=== PATIENT | female | born 1985 | race Caucasian/White ===

== ENCOUNTER 2016-10-16 05:13 | Emergency (ER) | payer MEDICAID ==
[~2016-10-16] VITALS: Ht 162.6 cm; Wt 90.7 kg
[2016-10-16 05:20] VITALS: BP_SYST 162
[2016-10-16] MEDS ORDERED: KETOROLAC TROMETHAMINE 60 MG/2 ML VIAL IM ONE (06:15)
[2016-10-16 06:39] VITALS: BP_SYST 148
== END 2016-10-16 06:38 | disposition home or self-care (01) ==
LOC: SED 05:13
DX: K08.89 Other specified disorders of teeth and supporting structures (principal)
CPT/HCPCS: 96372; 99283; J1885

== ENCOUNTER 2019-08-06 20:02 | Emergency (ER) | payer MEDICAID ==
[~2019-08-06] VITALS: Ht 160 cm; Wt 73.5 kg
[2019-08-06 20:13] VITALS: BP_SYST 165
--- NOTE | 2019-08-06 20:15 | NUR ---
ER PA Denilson Camilo in triage examining patient.
--- NOTE | 2019-08-06 20:16 | NUR ---
Pt brought by self , A&Ox4, pt presents to ER with cough/ congestion x 3 days, skin pink and warm, cap refill <3, afebrile,ambulatory, will cont to monitor.
--- NOTE | 2019-08-06 20:16 | NUR ---
Denilson GARNER evaluating patient at triage room
[2019-08-06 20:30] VITALS: BP_SYST 153
--- NOTE | 2019-08-06 20:30 | NUR ---
Patient given written and verbal discharge instructions and verbalizes understanding. ER MD discussed with patient the results and treatment provided. Patient in stable condition. ID arm band removed. Rx of Flonase, Promethazine, Cepacol Sore throat given. Patient educated on pain management and to follow up with PMD. Pain Scale 0. Opportunity for questions provided and answered. Medication side effect fact sheet provided.
== END 2019-08-06 20:30 | disposition home or self-care (01) ==
LOC: SED 20:02
DX: J06.9 Acute upper respiratory infection, unspecified (principal)
CPT/HCPCS: 99283

== ENCOUNTER 2019-09-11 17:49 | Emergency (ER) | payer MEDICAID ==
[~2019-09-11] VITALS: Ht 162.6 cm; Wt 90.7 kg
[2019-09-11 18:05] VITALS: BP_SYST 148
--- NOTE | 2019-09-11 18:50 | NUR ---
Patient to ER CH 1 chair to gown for evaluation. Side rails up.
--- NOTE | 2019-09-11 18:52 | NUR ---
ER NADINE Carroll at bedside examining patient.
--- NOTE | 2019-09-11 18:58 | NUR ---
Patient AAO x 4 ambulates to [facility] with complaints of cough, congestion, and 1/10 L ear discomfort since waking up with morning. Denies taking any medication at home for her symptoms. Even chest rise and fall with respirations. Will continue to monitor.
[2019-09-11 19:10] VITALS: BP_SYST 136
--- NOTE | 2019-09-11 19:10 | NUR ---
Patient given written and verbal discharge instructions and verbalizes understanding. ER PINKING MACHINE OPERATOR So Carroll discussed with patient the results and treatment provided. Patient in stable condition. ID arm band removed. Rx of Fluticasone Propionate, Zyrtec, and Augmentin given. Patient educated on pain management and to follow up with PMD. Pain Scale 1/10. Opportunity for questions provided and answered. Medication side effect fact sheet provided.
== END 2019-09-11 19:10 | disposition home or self-care (01) ==
LOC: SED 17:49
DX: J06.9 Acute upper respiratory infection, unspecified (principal); H66.92 Otitis media, unspecified, left ear; R03.0 Elevated blood-pressure reading, without diagnosis of hypertension
CPT/HCPCS: 99283

== ENCOUNTER 2019-09-12 23:06 | Emergency (ER) | payer MEDICAID ==
[~2019-09-12] VITALS: Ht 162.6 cm; Wt 90.7 kg
[2019-09-12 23:10] VITALS: BP_SYST 155
[2019-09-13 00:02] VITALS: BP_SYST 149
== END 2019-09-13 00:02 | disposition home or self-care (01) ==
LOC: SED 23:06
DX: J32.9 Chronic sinusitis, unspecified (principal); I10 Essential (primary) hypertension
CPT/HCPCS: 99283

== ENCOUNTER 2022-09-05 14:49 | Emergency (ER) | payer MEDICAID ==
[~2022-09-05] VITALS: Ht 162.6 cm; Wt 81.6 kg
[2022-09-05 15:12] VITALS: BP_SYST 170
[2022-09-05] MEDS ORDERED: IBUP-1969 PO (15:59)
[2022-09-05] MEDS ORDERED: AUG875 PO (15:59)
[2022-09-05] MEDS ORDERED: KETOROLAC TROMETHAMINE 15 MG VIAL IM ONE (16:00)
== END 2022-09-05 17:23 | disposition home or self-care (01) ==
LOC: SED 14:49
DX: K08.89 Other specified disorders of teeth and supporting structures (principal); I10 Essential (primary) hypertension; F17.210 Nicotine dependence, cigarettes, uncomplicated; F15.10 Other stimulant abuse, uncomplicated; Z79.899 Other long term (current) drug therapy
CPT/HCPCS: 99283; 96372; J1885

== ENCOUNTER 2023-07-09 05:02 | Emergency (ER) | payer MEDICAID ==
[~2023-07-09] VITALS: Ht 162.6 cm; Wt 90.7 kg
[~2023-07-09 05:02] MED LIST: AUG875 PO; IBUP-1969 PO
[2023-07-09 05:10] VITALS: BP_SYST 158; PULSE 101; RESP 26; TEMP 97.7; O2SAT 94
[2023-07-09] MEDS ORDERED: ALBUTEROL SULFATE 0.083% 2.5 MG/3 ML VIAL.NEB INH ONE (05:15)
[2023-07-09] MEDS ORDERED: predniSONE 20 MG TABLET PO ONE (05:30)
[2023-07-09] MEDS ORDERED: ALBMDI INH (05:50)
[2023-07-09] MEDS ORDERED: PRED20TA PO (05:50)
[2023-07-09 05:58] VITALS: BP_SYST 158; PULSE 86; RESP 22; TEMP 98.2
[2023-07-09 05:59] VITALS: O2SAT 96
== END 2023-07-09 05:57 | disposition home or self-care (01) ==
LOC: SED 05:02
DX: J45.901 Unspecified asthma with (acute) exacerbation (principal); I10 Essential (primary) hypertension; Z79.899 Other long term (current) drug therapy
CPT/HCPCS: 99283; 94640; J7512

== ENCOUNTER 2023-09-01 20:33 | Emergency (ER) | payer MEDICAID ==
[~2023-09-01] VITALS: Ht 162.6 cm; Wt 90.7 kg
[~2023-09-01 20:33] MED LIST changes: +ALBMDI INH; +PRED20TA PO
[2023-09-01 20:40] VITALS: BP_SYST 172; PULSE 101; RESP 17; TEMP 97.8; O2SAT 94
[2023-09-01] MEDS ORDERED: IPRATROPIUM/ALBUTEROL SULFATE 3 ML AMPUL.NEB (DUONEB) ONE (20:52)
[2023-09-01] MEDS ORDERED: IPRATROPIUM/ALBUTEROL SULFATE 3 ML AMPUL.NEB (DUONEB) INH ONE (21:00)
[2023-09-01] MEDS ORDERED: cloNIDine HCL 0.1 MG TABLET PO ONE (21:00)
[2023-09-01] MEDS ORDERED: NACL 0.9% 1,000 ML IV ONE (21:00)
[2023-09-01] MEDS ORDERED: methylPREDNISolone SOD SUCC/PF 62.5 MG/ML VIAL IVP ONE (21:00)
[2023-09-01] MEDS ORDERED: MAGNESIUM SULFATE 50 ML IV ONE (21:00)
[2023-09-01] MEDS ORDERED: PRED20TA PO (21:23)
[2023-09-01] MEDS ORDERED: ALBMDI INH (21:23)
[2023-09-01 21:24] LABS: INFLUENZA TYPE A Negative (NEGATIVE); INFLUENZA TYPE B NEGATIVE (NEGATIVE)
[2023-09-01 21:28] LABS: COVID19 ANTIGEN SOFIA FIA NEGATIVE (NEGATIVE)
[2023-09-01] MEDS ORDERED: ALBUTEROL SULFATE 0.083% 2.5 MG/3 ML VIAL.NEB INH ONE ×2 (21:30→22:00)
[2023-09-01] MEDS ORDERED: LISI20TA30 PO (21:40)
[2023-09-02 00:11] VITALS: BP_SYST 172; PULSE 101; RESP 17; TEMP 97.8; O2SAT 93
== END 2023-09-02 00:12 | disposition home or self-care (01) ==
LOC: SED 20:33
DX: J45.901 Unspecified asthma with (acute) exacerbation (principal); R06.03 Acute respiratory distress; I10 Essential (primary) hypertension; R06.02 Shortness of breath; Z79.899 Other long term (current) drug therapy; Z20.822 Contact with and (suspected) exposure to COVID-19
CPT/HCPCS: 36415; 71045; 94640; 96365; 96366; 96375; 99285; J2930; J3475

== ENCOUNTER 2023-10-10 18:27 | Emergency (ER) | payer MEDICAID ==
[~2023-10-10] VITALS: Ht 162.6 cm; Wt 90.7 kg
[2023-10-10 18:27] VITALS: BP_SYST 120; PULSE 89; RESP 19; TEMP 97.9; O2SAT 99
[~2023-10-10 18:27] MED LIST changes: +LISI20TA30 PO
[2023-10-10 18:43] VITALS: BP_SYST 154; PULSE 100; RESP 18; TEMP 98.2; O2SAT 95
[2023-10-10] MEDS ORDERED: ALBMDI INH (18:59)
[2023-10-10 19:07] VITALS: BP_SYST 135; PULSE 94; RESP 18; TEMP 97.8; O2SAT 96
== END 2023-10-10 19:06 | disposition home or self-care (01) ==
LOC: SED 18:27
DX: Z76.0 Encounter for issue of repeat prescription (principal); J45.909 Unspecified asthma, uncomplicated; I10 Essential (primary) hypertension; Z79.899 Other long term (current) drug therapy
CPT/HCPCS: 99281

== ENCOUNTER 2023-10-14 04:49 | Emergency (ER) | payer MEDICAID ==
[~2023-10-14] VITALS: Ht 162.6 cm; Wt 90.7 kg
[2023-10-14 04:54] VITALS: BP_SYST 168; PULSE 101; RESP 26; TEMP 97.5; O2SAT 90
[2023-10-14] MEDS ORDERED: predniSONE 20 MG TABLET ONE (04:56)
[2023-10-14] MEDS: predniSONE 20 MG TABLET PO ONE (04:58)
[2023-10-14] MEDS: IPRATROPIUM/ALBUTEROL SULFATE 3 ML AMPUL.NEB (DUONEB) INH ONE (05:06)
[2023-10-14 05:47] VITALS: BP_SYST 133; PULSE 74; RESP 18; TEMP 97.5; O2SAT 95
== END 2023-10-14 05:48 | disposition home or self-care (01) ==
LOC: SED 04:49
DX: J45.901 Unspecified asthma with (acute) exacerbation (principal); R06.02 Shortness of breath; I10 Essential (primary) hypertension; Z79.899 Other long term (current) drug therapy
CPT/HCPCS: 99283; 94640; J7512

== ENCOUNTER 2023-10-22 00:20 | Emergency (ER) | payer MEDICAID ==
[~2023-10-22] VITALS: Ht 162.6 cm; Wt 90.7 kg
[2023-10-22 00:28] VITALS: BP_SYST 164; PULSE 105; RESP 16; TEMP 98.1; O2SAT 95
[2023-10-22] MEDS: predniSONE 20 MG TABLET PO ONE (03:30)
[2023-10-22] MEDS: IPRATROPIUM BROM 0.5 MG/2.5 ML VIAL.NEB (ATROVENT) INH ONE ×2 (03:43→04:17)
[2023-10-22] MEDS: ALBUTEROL SULFATE 0.083% 2.5 MG/3 ML VIAL.NEB INH ONE ×2 (03:43→04:17)
[2023-10-22] MEDS ORDERED: ALBMDI INH (04:01)
[2023-10-22] MEDS ORDERED: PRED20TA PO (04:01)
[2023-10-22 04:28] VITALS: BP_SYST 164; PULSE 105; RESP 16; TEMP 98.1; O2SAT 93
== END 2023-10-22 04:25 | disposition home or self-care (01) ==
LOC: SED 00:20
DX: J45.901 Unspecified asthma with (acute) exacerbation (principal); R06.02 Shortness of breath; I10 Essential (primary) hypertension; Z79.899 Other long term (current) drug therapy
CPT/HCPCS: 99284; 94640; J7512

== ENCOUNTER 2023-12-31 02:12 | Emergency (ER) | payer MEDICAID ==
[~2023-12-31] VITALS: Ht 170.2 cm; Wt 99.8 kg
[2023-12-31 02:15] VITALS: BP_SYST 155; PULSE 102; RESP 20; TEMP 98; O2SAT 92
[2023-12-31] MEDS: ALBUTEROL SULFATE 0.083% 2.5 MG/3 ML VIAL.NEB INH ONE (02:48)
[2023-12-31] MEDS: methylPREDNISolone SOD SUCC/PF 62.5 MG/ML VIAL IVP ONE (03:03)
[2023-12-31] MEDS: ENALAPRILAT DIHYDRATE 1.25 MG/ML VIAL IVP ONE (03:03)
[2023-12-31] MEDS: MAGNESIUM SULFATE 50 ML IV ONE (03:04)
[2023-12-31] MEDS ORDERED: LISI20TA30 PO (04:58)
[2023-12-31 05:03] VITALS: BP_SYST 138; PULSE 86; RESP 20; TEMP 98; O2SAT 92
== END 2023-12-31 05:02 | disposition home or self-care (01) ==
LOC: SED 02:12
DX: J45.901 Unspecified asthma with (acute) exacerbation (principal); F17.200 Nicotine dependence, unspecified, uncomplicated; I10 Essential (primary) hypertension; Z90.49 Acquired absence of other specified parts of digestive tract; Z79.899 Other long term (current) drug therapy; Z79.2 Long term (current) use of antibiotics
CPT/HCPCS: 94640; 96365; 96366; 96375; 99285; J2930; J3475

== ENCOUNTER 2024-01-25 04:05 | Emergency (ER) | payer MEDICAID ==
[~2024-01-25] VITALS: Ht 162.6 cm; Wt 90.7 kg
[2024-01-25 04:44] VITALS: BP_SYST 114; PULSE 101; RESP 18; TEMP 97.9; O2SAT 98
== END 2024-01-25 04:55 | disposition left against medical advice (07) ==
LOC: SED 04:05
DX: R06.02 Shortness of breath (principal); Z53.21 Procedure and treatment not carried out due to patient leaving prior to being seen by health care provider

== ENCOUNTER 2024-03-06 01:53 | Inpatient (IN) | payer MEDICAID ==
[~2024-03-06] VITALS: Ht 162.6 cm; Wt 95.3 kg
[2024-03-06] VITALS (7 sets, daily range): BP systolic 136–151; PULSE 84–111; RESP 16–18; TEMP 96.7–98.1; O2SAT 92–96
--- NOTE | 2024-03-06 02:00 | NUR ---
Patient to ER bed 3 to gown for evaluation. Side rails up. Report given to YRN KWONG.
--- NOTE | 2024-03-06 02:00 | NUR ---
C/O TROUBLE BREATHING, SOB AND COUGH STARTING WHEN SHE WOKE UP THIS MORNING. HAS HX OF ASTHMA AND HTN. RAN OUT OF INHALER. SPEAKING IN COMPLETE SENTENCES. RESPIRATIONS ARE A BIT SHALLOW AND TIGHT. O2 SAT AT 92% ON RA. HR AT 110. DENIES PAIN.
[2024-03-06] MEDS: IPRATROPIUM/ALBUTEROL SULFATE 3 ML AMPUL.NEB (DUONEB) INH ONE ×2 (02:18→03:39)
--- NOTE | 2024-03-06 02:18 | NUR ---
DR VELASCO IS EXAMINING THE PATIENT AT THE BEDSIDE
--- NOTE | 2024-03-06 02:18 | NUR ---
RT AT THE BEDSIDE
--- NOTE | 2024-03-06 02:25 | NUR ---
x ray at the bedside
[2024-03-06] MEDS: predniSONE 20 MG TABLET PO ONE (02:34)
--- NOTE | 2024-03-06 03:00 | NUR ---
PT ASKING FOR PUDDING. ITEM PROVIDED
[2024-03-06] MEDS ORDERED: PRED20TA PO (03:16)
[2024-03-06] MEDS ORDERED: ALBMDI INH (03:16)
[2024-03-06 03:23] LABS: COVID19 ANTIGEN SOFIA FIA NEGATIVE (NEGATIVE)
[2024-03-06 03:39] LABS: INFLUENZA TYPE A Negative (NEGATIVE); INFLUENZA TYPE B NEGATIVE (NEGATIVE)
[2024-03-06 04:16] LABS: BASOPHILS # (AUTO) 0.1 K/uL (0.0-0.2); BASOPHILS % (AUTO) 0.8 % (0.0-2.0); EOSINOPHILS # (AUTO) 0.6 K/uL (0.0-0.4); EOSINOPHILS % (AUTO) 6.6 % (0.0-4.0); HEMATOCRIT 36.8 % (36-48); HEMOGLOBIN 11.8 g/dL (12.0-16.0); LYMPHOCYTES # (AUTO) 2.1 K/uL (1.0-5.5); MEAN CORPUSCULAR HEMOGLOBIN 26 pg (27-31); MEAN CORPUSCULAR HGB CONC 32 % (32-36); MEAN CORPUSCULAR VOLUME 80 fL (79.0-98.0); MONOCYTES # (AUTO) 0.8 K/uL (0.0-1.0); NEUTROPHILS # (AUTO) 5.4 K/uL (1.8-7.7); NEUTROPHILS % (AUTO) 60.6 % (40.0-70.0); PLATELET COUNT (AUTO) 334 K/uL (130-430); RED BLOOD CELL COUNT(AUTO) 4.59 MIL/uL (4.2-6.2); RED CELL DISTRIBUTION WIDTH 17.6 % (9.0-15.0); WHITE BLOOD COUNT (AUTO) 8.9 K/uL (4.8-10.8)
[2024-03-06 04:26] LABS: CALCIUM 8.6 mg/dL (8.4-11.0); CREATININE 0.67 mg/dL (0.55-1.30)
[2024-03-06 04:32] LABS: POTASSIUM 2.9 mmol/L (3.5-5.1)
[2024-03-06] MEDS ORDERED: KCL IV ONE (04:44)
[2024-03-06] MEDS: POTASSIUM CHLORIDE 20 MEQ/PKT PACKET PO ONE (05:04)
[2024-03-06] MEDS: NS 500 ML IV ONE (05:04)
--- NOTE | 2024-03-06 05:58 | NUR ---
Admit bed requested Patient will be admitted to care of . Admitted to TELEMETRY unit. Diagnosis ASHMA EXERCABATION Inpatient (Yes or No) YES Observation (Yes or No) NO Orientation concerns or request close to nursing station (Yes or No) NO Covid Status NEGATIVE On vent or bipap NA Isolation requirements NA Needs a sitter NA From Home (Yes or if No enter name of facility) YES Requires Dialysis (Yes or No) NO Med Rec Completed (Yes of No) YES
--- NOTE | 2024-03-06 06:04 | NUR ---
Printed EMS run sheet and placed in patient's chart. [facility] sequence number: [id number]
[2024-03-06] MEDS: POTASSIUM CHLORIDE 10 MEQ in NACL 0.9% 1,000 ML IV SCH (06:15)
--- NOTE | 2024-03-06 06:50 | NUR ---
ADMIT NOTE Received pt from ER to with a diagnosis of Asthma Exacerbation. Received report from ELENITA Gunn. Patient arrived to unit, and waited momentarily while bed was opened and zerod. She ambulated to the bed without difficutly. She was instructed on use of call light. Bed is locked in lowest position, two side rails up and call light w/in reach. (bed alarm sounded on other patient and had to attend, I (this nurse) returned and was ready for admit process
--- NOTE | 2024-03-06 06:50 | NUR ---
Patient will be admitted to care of [facility]. Admitted to TELEMTRY unit. Will go to room 117 A. Belongings list completed. Complete and up to date summary report printed. SBAR report to be given at bedside with opportunity for questions.
--- NOTE | 2024-03-06 08:30 | NUR ---
PATIENT CAME FROM ER VIA RVICTORINO A 38 YR OLD FEMALE CC OF SOB HAS 4 LNC OF OXYGEN. OXYGEN SATURATION 96%. VSS STABLE. AFEBRILE. HAS IV ACCESS ON THE LEFT AC #20 W/ POTASSIUM IV HANGING AT 50CC/HR INFUSING ON WELL. 1000CC BAG. ADMITTED AAO X 4. NO PAIN NOTED. SOB ON EXERTION. LUNGS BILATERALLY DIMINISHED AT THE BASES. ORIENTED TO ROOM AND SURROUNDINGS. CALL LIGHTS WITHIN REACH. CONTINUE TO MONITOR
--- NOTE | 2024-03-06 09:00 | NUR ---
ADMISSION ASSESSMENT DONE BY TALI KWONG.
[2024-03-06] MEDS: METHYLPREDNISOLONE SOD SUCC 40 MG/ML VIAL IVP SCH (09:46)
--- NOTE | 2024-03-06 10:00 | NUR ---
DUE MEDS GIVEN AT THIS TIME.
[2024-03-06] MEDS ORDERED: ACETAMINOPHEN 325 MG TABLET PO PRN ×2 (10:30→11:00)
[2024-03-06] MEDS ORDERED: ONDANSETRON HCL 4 MG/2 ML VIAL IVP PRN (10:30)
[2024-03-06] MEDS ORDERED: IBUPROFEN 600 MG TABLET PO PRN (10:30)
[2024-03-06] MEDS ORDERED: LORazepam 2 MG/ML VIAL IVP PRN (10:30)
--- NOTE | 2024-03-06 10:34 | NUR ---
CONSULTATION PAGED REASON FOR CONSULTATION: ASTHMA WAS CONSULT CALLED? Y PERSON WHO WAS NOTIFIED: DARLEEN CONSULTING PHYSICIAN: ED PARKER (ANTHONY WARREN OPERATING TABLE ASSEMBLER) CAKE PRESS OPERATOR SPECIALTY: PULMONARY CAKE PRESS OPERATOR PHONE NUMBER: [phone] REQUESTING PHYSICIAN: JORGE LUIS KRUGER
[2024-03-06] MEDS: lisinopriL 20 MG TABLET PO ONE (11:00)
[2024-03-06] MEDS: IPRATROPIUM BROM 0.5 MG/2.5 ML VIAL.NEB (ATROVENT) INH SCH (11:05)
[2024-03-06] MEDS: IPRATROPIUM/ALBUTEROL SULFATE 3 ML AMPUL.NEB (DUONEB) ONE (11:05)
[2024-03-06] MEDS: ALBUTEROL SULFATE 0.083% 2.5 MG/3 ML VIAL.NEB INH SCH (11:05)
--- NOTE | 2024-03-06 11:45 | NUR ---
Supervisor Inspection And Testing: Met with patient at bedside to complete a discharge planning assessment and discuss her current living arrangements. per patient, she couch surfs among friends. She stays in the [place] area off and . She states she usually keeps a job, and was most recently working at [employer] on a temporary assignment. She does have income through general [employer] ($220) and food stamps ($280)She receives mental health and community services with [facility], and states her next appointment with her manager rn case is on [phone]. The patient denies any illicit drug or alcohol usage, however she did present with scabs on her face and forearm area. I attempted to see if there was a toxicology report that was ran, however there was no report available. Prior to leaving, the patient was offered resources to help combat her housing issues. While the patient was not receptive of homeless shelters, she was provided with emergency community resources such as food, clothing, places to go for shower, and mental health resources. The patient was given community resources for her review. At this time, there is nothing else needed from social media editor. At time of discharge, the patient states she will go to he father's home in [place]. discharge address: [address]; [place] [address]
--- NOTE | 2024-03-06 12:00 | NUR ---
PATIENT ASLEEP AND RESTING. WITHOUT OXYGEN.
--- NOTE | 2024-03-06 12:00 | NUR ---
PATIENT REFUSED TO HAVE MEDICATION ORDERED AND SALINE FLUSH TOO.
[2024-03-06] MEDS: NORMAL SALINE 5 ML DISP.SYRIN IVF SCH (14:00)
--- NOTE | 2024-03-06 15:00 | NUR ---
WAKES UP AT THIS TIME. SAID I WANT TO GO HOME. DISCHARGE AGAINST MEDICAL ADVICE
--- NOTE | 2024-03-06 15:50 | NUR ---
PATIENT LEFT DISCHARGE AGAINST MEDICAL ADVICE. DR GOFF CALLED.
[2024-03-06] MEDS ORDERED: AMOXICILLIN/POTASSIUM CLAV 875 MG TABLET PO SCH (21:00)
[2024-03-07] MEDS ORDERED: lisinopriL 20 MG TABLET PO SCH (09:00)
== END 2024-03-06 15:55 | disposition left against medical advice (07) | DRG 133 ==
LOC: SED 01:53 → SMU 05:27 → STU 06:45
PROVIDERS: ADMIT Preventive Medicine Preventive Medicine/Occupational Environmental Medicine; ATTEND Preventive Medicine Preventive Medicine/Occupational Environmental Medicine
DX: J96.00 Acute respiratory failure, unspecified whether with hypoxia or hypercapnia (principal); J45.901 Unspecified asthma with (acute) exacerbation; E87.6 Hypokalemia; Z20.822 Contact with and (suspected) exposure to COVID-19; I10 Essential (primary) hypertension; Z90.49 Acquired absence of other specified parts of digestive tract; Z87.891 Personal history of nicotine dependence; Z98.891 History of uterine scar from previous surgery
CPT/HCPCS: 36415; 71045; 80048; 85025; 85379; 93005; 94070; 94640; 94760; 99285; G0378; J1030; J3480; J7030; J7512

== ENCOUNTER 2024-05-02 22:20 | Emergency (ER) | payer MEDICAID ==
[~2024-05-02] VITALS: Ht 162.6 cm; Wt 95.3 kg
[2024-05-02 22:42] VITALS: BP_SYST 146; PULSE 107; RESP 20; TEMP 96.9; O2SAT 96
[2024-05-03 00:04] VITALS: BP_SYST 146; PULSE 107; RESP 20; TEMP 96.9; O2SAT 96
== END 2024-05-03 00:04 | disposition home or self-care (01) ==
LOC: SED 22:20
DX: J45.909 Unspecified asthma, uncomplicated (principal); I10 Essential (primary) hypertension; Z76.0 Encounter for issue of repeat prescription; Z90.49 Acquired absence of other specified parts of digestive tract; Z98.890 Other specified postprocedural states; Z79.52 Long term (current) use of systemic steroids; Z79.899 Other long term (current) drug therapy
CPT/HCPCS: 99281